=== PATIENT | female | born 1990 | race Caucasian/White ===

== ENCOUNTER 2016-12-11 13:39 | Inpatient (IN) | payer OTHER ==
[2016-12-11] MEDS ORDERED: MINERAL OIL PO PRN (14:08)
[2016-12-11] MEDS ORDERED: BRETHINE IVP PRN (14:08)
[2016-12-11] MEDS ORDERED: SUBLIMAZE IV PRN (14:08)
[2016-12-11] MEDS ORDERED: XYLOCAINE 2% INFILTRATI ONE (14:08)
[2016-12-11] MEDS ORDERED: ePHEDrine SULFATE IV PRN ×2 (14:08→18:48)
[2016-12-11] MEDS ORDERED: BRETHINE SUB-Q PRN (14:08)
--- NOTE | 2016-12-11 14:14 | History and Physical Report ---
History of Present Illness Date of examination: 12/11/16 Date of admission: 12/11/2016 Chief complaint: I'M having contractions History of present illness: 26 yo , with care at [facility] since 6.4 weeks gestation, presents to hospital in active labor. 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 Past History Past Medical History: no pertinent history Past Surgical History: no surgical history Family/Genetic History: diabetes, hypertension Social history: no significant social history - Obstetrical History Expected Date of Delivery: 12/17/16 Actual Gestation: 39 Week(s) 1 Day(s) : 3 Para: 2 Hx # Term Pregnancies: 2 Number of Pregnancies: 0 Spontaneous Abortions: 0 Number of Living Children: 2 Medications and Allergies Allergies Allergy/AdvReac Type Severity Reaction Status Date / Time No Known Allergies Allergy Unverified 12/11/16 13:40 Home Medications Medication Instructions Recorded Confirmed Last Taken Type Tablet 1 tab PO DAILY 12/11/16 12/11/16 12/06/16 08:00 History 1 tab Active Meds: Active Medications Ephedrine Sulfate (Ephedrine Sulfate) 10 mg IV Q2M PRN PRN Reason: Hypotension Stop: 12/11/16 14:13 Fentanyl (Sublimaze) 100 mcg IV Q2H PRN PRN Reason: Labor Pain Lactated Ringer's (Lactated Ringers) 1,000 mls @ 125 mls/hr IV DIRECT KOURTNEY Oxytocin/Sodium Chloride (Pitocin/Ns 20 Unit/1000ml Drip) 20 units in 1,000 mls @ 125 mls/hr IV DIRECT KOURTNEY Lidocaine (Xylocaine 2%) 20 ml INFILTRATI ONCE ONE Stop: 12/11/16 14:09 Mineral Oil (Mineral Oil) 30 ml PO QHS PRN PRN Reason: Constipation Terbutaline Sulfate (Brethine) 0.25 mg SUB-Q ONCE PRN PRN Reason: Hyperstimulation/Hypertonicity Stop: 12/11/16 14:09 Terbutaline Sulfate (Brethine) 0.25 mg IVP ONCE PRN PRN Reason: Hyperstimulation/Hypertonicity Stop: 12/11/16 14:09 Review of Systems All systems: negative - Vital Signs Vital signs: Vital Signs Pulse BP 98 H 148/96 12/11/16 13:48 12/11/16 13:48 Temp Pulse Resp BP Pulse Ox 98.3 F 94 H 20 130/69 97 12/11/16 13:56 12/11/16 14:00 12/11/16 13:56 12/11/16 13:56 12/11/16 14:00 - Physical Exam Breasts: Positive: deferred Cardiovascular: Regular rate Lungs: Positive: Clear to auscultation Abdomen: Positive: soft Vulva: both: normal Vagina: Positive: normal moisture Uterus: Positive: enlarged Deep Tendon Reflex Grade: Normal +2 - Obstetrical FHR: category 1 Cervical Dilatation: 7 (nurse exam) Cervical Effacement Percentage: 90 station: -1 Uterine Contraction Pattern: Irregular Uterine Contraction Intensity: Moderate Results Result Diagrams: 12/11/16 14:50 All other labs normal. Assessment and Plan A: IUP @ 39 weeks in active labor P: Expect
[2016-12-11] MEDS ORDERED: FLUARIX QUAD 2016-2017(36 MOS+) IM ONE (14:53)
[2016-12-11] MEDS ORDERED: LACTATED RINGERS 1,000 ML IV SCH (15:00)
[2016-12-11] MEDS ORDERED: PITOCin/NS 20 UNIT/1000ML DRIP 20 UNITS/1,000 ML BAG IV SCH (15:00)
[2016-12-11 15:12] LABS: Hematocrit 34.4 % (30.3-42.9); Hemoglobin 11.1 gm/dl (10.1-14.3); Mean Corpuscular HGB Conc 32 % (30-34); Mean Corpuscular Volume 74 fl (79-97); Platelet Count 246 K/mm3 (140-440); Red Blood Count 4.65 M/mm3 (3.65-5.03); Red Cell Distribution Width 17.1 % (13.2-15.2); White Blood Count 10.6 K/mm3 (4.5-11.0)
[2016-12-11 15:13] LABS: Mean Corpuscular Hemoglobin 24 pg (28-32)
[2016-12-11] MEDS ORDERED: PITOCin/NS 30 UNIT/500ML 30,000 MILLIUNITS/500 ML BAG IV ONE (17:59)
[2016-12-11] MEDS ORDERED: ePHEDrine SULFATE ONE (18:21)
[2016-12-11] MEDS ORDERED: NARCAN 2 MG/2 ML IV PRN (18:48)
--- NOTE | 2016-12-11 18:48 | Anesthesia Consultation ---
Anesthesia Consult and Med Hx Date of service: 12/11/16 - Airway Anesthetic Teeth Evaluation: Good ROM Head & Neck: Adequate Mental/Hyoid Distance: Adequate Mallampati Class: Class II Intubation Access Assessment: Good - Pulmonary Exam CTA: Yes - Cardiac Exam Cardiac Exam: No Murmur - Pre-Operative Health Status ASA Pre-Surgery Classification: ASA2 Proposed Anesthetic Plan: Epidural - Pulmonary Hx Asthma: No COPD: No Hx Pneumonia: No - Cardiovascular System Hx Hypertension: Yes (present only) - Central Nervous System Hx Seizures: No Hx Psychiatric Problems: No - Endocrine Hx Renal Disease: No Hx End Stage Renal Disease: No Hx Hypothyroidism: No Hx Hyperthyroidism: No - Hematic Hx Anemia: No Hx Sickle Cell Disease: No - Other Systems Hx Alcohol Use: Yes (occas social)
[2016-12-11] MEDS ORDERED: fentaNYL-BUPIV 2 MCG/ML-0.125% 200 MCG/100 ML BAG EPIDURAL SCH (19:00)
[2016-12-11] MEDS ORDERED: TYLENOL PO PRN (20:05)
[2016-12-11] MEDS ORDERED: BENADRYL PO PRN (20:05)
[2016-12-11] MEDS ORDERED: MILK OF MAGNESIA PO PRN (20:05)
[2016-12-11] MEDS ORDERED: TUCKS PAD TP PRN (20:05)
[2016-12-11] MEDS ORDERED: DULCOLAX PR PRN (20:05)
[2016-12-11] MEDS ORDERED: LANSINOH TP PRN (20:05)
[2016-12-11] MEDS ORDERED: DERMOPLAST TP PRN (20:05)
[2016-12-11] MEDS ORDERED: ZOFRAN IV PRN (20:05)
[2016-12-11] MEDS ORDERED: NORCO 5/325 PO PRN (20:05)
[2016-12-11] MEDS ORDERED: PHENERGAN PO PRN (20:05)
--- NOTE | 2016-12-11 20:05 | Procedure Note ---
OB Delivery Note - Delivery Date of Delivery: 12/11/16 Surgeon: ELAINE ORTEZ Estimated blood loss: 300cc - Vaginal Delivery presentation: vertex Delivery position: OA Intrapartum events: none Delivery induction: none Delivery augmentation: rupture of membranes, pitocin Delivery monitor: external FHT, external uterine Route of delivery: Delivery placenta: spontaneous Delivery cord: 3 umbilical vessels Episiotomy: none Delivery laceration: 1st degree Delivery repair: vicryl Anesthesia: epidural Delivery comments: of a viable male 8# 8oz on 12/11/2016 @ 1941 over first degree laceration. 8/9. Placenta delivered 3VCI. Laceration repaired with 2-0 vicryl. EBL 300cc. FF 2 U. Mother and baby doing well. - A at 1 minute: 8 at 5 minutes: 9 Gender: Male (8#-8oz)
[2016-12-11] MEDS: MOTRIN PO SCH (20:45)
[2016-12-11] MEDS ORDERED: SODIUM CHLORIDE FLUSH SYRINGE 10 ML IV PRN (21:00)
[2016-12-12] MEDS: MOTRIN PO SCH ×4 (05:54→23:57)
[2016-12-12 08:45] LABS: Hematocrit 25.7 % (30.3-42.9); Hemoglobin 8.2 gm/dl (10.1-14.3)
--- NOTE | 2016-12-12 09:57 | Progress Note ---
Assessment and Plan A: PPD1 s/p Ambulating, voiding and eating well Breastdfeeding well P: Routine PP care Contraception: Depo before d/c Plans for d/c tomorrow Subjective - Subjective Date of service: 12/12/16 Principal diagnosis: PPD1 Interval history: 26 yo , with care at [facility] since 6.4 weeks gestation, presented to hospital in active labor. 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 of a viable male 8# 8oz on 12/11/2016 @ 1941 over first degree laceration. 8/9. Placenta delivered 3VCI. Laceration repaired with 2-0 vicryl. EBL 300cc. FF 2 U. Mother and baby doing well. Patient reports: appetite normal, voiding normally, pain well controlled, ambulating normally : doing well Objective - Vital Signs Latest vital signs: Vital Signs Temp Pulse Pulse Resp BP BP Pulse Ox 12/12/16 05:05 98.5 F 90 20 140/78 12/12/16 01:45 99.4 F 88 22 128/75 12/11/16 21:45 98.9 F 88 20 125/79 12/11/16 21:00 86 146/80 12/11/16 20:47 90 151/81 12/11/16 20:45 16 12/11/16 20:32 98.1 F 18 12/11/16 20:31 80 138/72 12/11/16 20:16 90 126/59 12/11/16 20:00 92 H 144/74 12/11/16 19:46 103 H 148/72 12/11/16 19:31 111 H 168/90 12/11/16 19:30 99 H 99 12/11/16 19:25 92 H 98 12/11/16 19:20 85 98 12/11/16 19:16 93 H 129/75 12/11/16 19:15 96 H 98 12/11/16 19:10 88 99 12/11/16 19:06 103 H 138/72 12/11/16 19:05 107 H 98 12/11/16 19:01 100 H 143/71 12/11/16 19:00 94 H 136/69 98 12/11/16 18:58 97 H 136/70 12/11/16 18:56 99 H 137/72 12/11/16 18:55 102 H 99 12/11/16 18:54 94 H 139/72 12/11/16 18:52 105 H 139/75 12/11/16 18:50 101 H 145/76 99 12/11/16 18:48 111 H 146/78 12/11/16 18:46 99 H 135/80 12/11/16 18:45 102 H 98 12/11/16 18:44 105 H 139/84 12/11/16 18:40 97 H 99 12/11/16 18:37 97.5 F L 107 H 18 136/83 99 12/11/16 18:36 107 H 136/83 12/11/16 18:35 95 H 99 12/11/16 18:30 107 H 99 12/11/16 16:01 90 95 12/11/16 16:00 97.6 F 97 H 18 128/68 96 12/11/16 15:58 91 H 128/68 12/11/16 15:56 90 94 12/11/16 14:27 97 H 96 12/11/16 14:22 100 H 94 12/11/16 14:17 93 H 97 12/11/16 14:15 100 H 134/94 12/11/16 14:14 101 H 94 12/11/16 14:12 99 H 98 12/11/16 14:00 94 H 97 12/11/16 13:56 98.3 F 96 H 20 130/69 12/11/16 13:54 87 130/69 97 12/11/16 13:51 101 H 97 12/11/16 13:50 98 H 145/91 96 12/11/16 13:49 98 H 97 12/11/16 13:48 98 H 148/96 Intake and Output 12/11/16 12/12/16 12/12/16 22:59 06:59 14:59 Intake Total 1465 605 Output Total 1375 800 Balance 90 -195 Intake: IV 1125 125 Lactated Ringers 1,000 ml 1000 @ 125 mls/hr IV DIRECT KOURTNEY Rx#:[id number] PITOCin/NS 20 UNIT/1000ML 125 125 DRIP 20 units In 1,000 ml @ 125 mls/hr IV DIRECT KOURTNEY Rx#:[id number] Oral 340 Intake, Free Water 480 Output: Urine 1375 800 Indwelling Catheter 225 500 Uretheral (Patel) 150 Void 1000 300 Other: Total, Intake Amount 340 Total, Output Amount 75 500 # Voids Void 1 Estimated Blood Loss 300 - Exam Cardiovascular: Present: Regular rate Lungs: Present: Normal air movement Vulva: both: normal (minimal lochia) Uterus: Present: firm, fundal height below umbilicus Extremities: Present: normal Deep Tendon Reflex Grade: Normal +2 - Labs Labs: Abnormal lab results 12/11/16 12/12/16 Range/Units 14:50 08:01 Hgb 8.2 L (10.1-14.3) gm/dl Hct 25.7 L D (30.3-42.9) % MCV 74 L (79-97) fl MCH 24 L (28-32) pg RDW 17.1 H (13.2-15.2) %
--- NOTE | 2016-12-12 10:01 | Discharge Summary ---
Providers - Providers Date of Admission: 12/11/16 14:14 Date of discharge: 12/13/16 Attending physician: JILLIAN EUBANKS MD Primary care physician: JILLIAN EUBANKS MD Hospitalization Reason for admission: active labor Delivery: Laceration: 1st degree Other procedures: none complications: none Discharge diagnosis: IUP at term delivered Yulan baby: male Hospital course: uneventful Condition at discharge: Good Disposition: DISCHARGED TO HOME OR SELFCARE Plan - Provider Discharge Summary Activity: routine, no sex for 6 weeks, no heavy lifting 4 weeks, no strenuous exercise Diet: routine Instructions: routine Additional instructions: [] Smoking cessation referral if applicable(refer to patient education folder for contact #) [] Refer to [facility]'s [facility] Booklet Call your doctor immediately for: * Fever > 100.5 * Heavy vaginal bleeding ( >1 pad per hour) * Severe persistent headache * Shortness of breath * Reddened, hot, painful area to leg or breast * Drainage or odor from incision. * Keep incision clean and dry at all times and follow doctor's instructions regarding bathing/showering - Follow up plan Follow up: [facility] [Provider Group] - 6 Weeks
--- NOTE | 2016-12-12 10:55 | Progress Note ---
Subjective Date of service: 12/12/16 Principal diagnosis: PPD1 Interval history: 1st day after normal vaginal delivery Patient is in the bed, comfortable. Pain is well under control. No nausea or vomiting. Ambulated well. No residual neurological deficit. No anesthesia complications Objective - Constitutional Vitals: Vital Signs - 12hr 12/12/16 12/12/16 12/12/16 01:45 05:05 08:19 Temperature 99.4 F 98.5 F 98.0 F Pulse Rate [ 88 90 85 From Monitor] Respiratory 22 20 18 Rate Blood Pressure 128/75 140/78 129/69 [Right Arm] - Labs CBC & Chem 7: 12/12/16 08:01 Labs: Abnormal lab results 12/11/16 12/12/16 Range/Units 14:50 08:01 Hgb 8.2 L (10.1-14.3) gm/dl Hct 25.7 L D (30.3-42.9) % MCV 74 L (79-97) fl MCH 24 L (28-32) pg RDW 17.1 H (13.2-15.2) %
[2016-12-12] MEDS ORDERED: DEPO-PROVERA (CONTRACEPTION) IM NR (11:00)
[2016-12-13] MEDS: MOTRIN PO SCH ×2 (05:36→11:05)
[2016-12-13] MEDS ORDERED: BOOSTRIX IM ONE (06:00)
[2016-12-13] MEDS ORDERED: FLUARIX QUAD 2016-2017(36 MOS+) IM ONE (11:00)
[2016-12-13 17:11] VITALS: BP 141/79
== END 2016-12-13 15:45 | disposition home or self-care (01) | DRG 775 ==
LOC: TRG 13:39 → LD 14:14 → OB 21:39
PROVIDERS: ADMIT Obstetrics & Gynecology; ATTEND Obstetrics & Gynecology
PROC: 00HU33Z Insertion of Infusion Device into Spinal Canal, Percutaneous Approach (ICD-10-PCS; principal; 2016-12-11)
PROC: 10E0XZZ Delivery of Products of Conception, External Approach (ICD-10-PCS; principal; 2016-12-11)
PROC: 3E0S3CZ (ICD-10-PCS; principal; 2016-12-11)
PROC: 0HQ9XZZ Repair Perineum Skin, External Approach (ICD-10-PCS; principal; 2016-12-11)
DX: O70.0 First degree perineal laceration during delivery (principal); Z82.49 Family history of ischemic heart disease and other diseases of the circulatory system; Z83.3 Family history of diabetes mellitus; Z3A.39 39 weeks gestation of pregnancy; Z37.0 Single live birth
CPT/HCPCS: 36415; 85014; 85018; 85027; 86850; 86900; 86901; 90471; 90686; 90715; 99211; G0008; G0463; J1050; J2590; J7120